=== PATIENT | female | born 1975 | race Caucasian/White ===

== ENCOUNTER 2018-03-16 18:00 | Outpatient (REF) | payer MEDICAID, SELFPAY ==
--- NOTE | 2018-03-16 09:00 | PAPFT_PTH ---
PATIENT: Elaine Willard LOC: [facility] U#:[id number] AGE/SX: 42/F ROOM: RE03/16/[address]: Trang Smith : 1975 BED: DIS: 03/16/2018 SPEC #: [id number] RECD: 03/17/18 12:26 STATUS: CARLOS SPARROW #: [id number] GISSELLE: 03/16/18 09:[address]: Trang Smith DEPT: [facility] Cytology RECD BY: Veena Sexton ENTERED: 03/17/18 12:27 SP TYPE: PAPFT OTHR DR: Radha Krause Tissues: 1 - CX/ENDOCX FOR PAP SMEARS Procedures: PAP THIN PREP/[facility] Screening HPV DNA PROBE Comments: [id number]
[2018-03-16 23:14] LABS: Anion Gap 9.5 mmol/L (3-11); BUN 9 mg/dL (7-18); CO2 23.5 mmol/L (21.0-32.0); CREATININE 0.91 mg/dL (0.55-1.02); Calcium 8.6 mg/dL (8.5-10.1); Chloride 104 mmol/L (98-107); Glucose 103 mg/dL (70-100); Potassium 4.2 mmol/L (3.5-5.1); Sodium 137 mmol/L (136-145)
== END 2018-03-16 18:20 ==
LOC: NCHCN 18:00
PROVIDERS: PCP Nurse Practitioner Family; Visit Provider Registered Nurse
DX: I10 Essential (primary) hypertension (principal); Z12.4 Encounter for screening for malignant neoplasm of cervix; Z11.51 Encounter for screening for human papillomavirus (HPV)
CPT/HCPCS: 80048; 88142; 87624

== ENCOUNTER 2019-04-18 09:47 | Outpatient (REF) | payer MEDICARE, MEDICAID, SELFPAY ==
[2019-04-18 21:54] LABS: Anion Gap 12.6 mmol/L (3-11); BUN 10 mg/dL (7-18); CO2 23.4 mmol/L (21.0-32.0); CREATININE 0.89 mg/dL (0.55-1.02); Calcium 8.6 mg/dL (8.5-10.1); Calculated LDL 55 mg/dL; Chloride 102 mmol/L (98-107); Cholesterol 177 mg/dL (50-200); Glucose 93 mg/dL (70-100); HDL Cholesterol 88 mg/dL (40-60); Potassium 4.1 mmol/L (3.5-5.1); Sodium 138 mmol/L (136-145); Triglyceride 170 mg/dL (30-150)
== END 2019-04-18 10:07 ==
LOC: NCHCO 09:47
PROVIDERS: PCP Nurse Practitioner Family; Visit Provider Registered Nurse
DX: I10 Essential (primary) hypertension (principal); Z00.00 Encounter for general adult medical examination without abnormal findings
CPT/HCPCS: 80048; 80061

== ENCOUNTER 2019-07-05 11:24 | Outpatient (REF) | payer MEDICARE, MEDICAID, SELFPAY ==
--- NOTE | 2019-07-05 10:30 | PAPFT_PTH ---
PATIENT: Elaine Willard LOC: [facility] U#:[id number] AGE/SX: 43/F ROOM: RE07/05/[address]: Trang Smith : 1975 BED: DIS: 07/05/2019 SPEC #: [id number] RECD: 07/08/19 12:53 STATUS: CARLOS REQ #: [id number] GISSELLE: 07/05/19 10:[address]: Trang Smith DEPT: [facility] Cytology RECD BY: Veena Sexton ENTERED: 07/08/19 12:54 SP TYPE: PAPFT OTHR DR: Radha Krause Tissues: 1 - CX/ENDOCX FOR PAP SMEARS Procedures: PAP THIN PREP/[facility] Screening HPV DNA PROBE Comments: [id number] (CHLAMYDIA/GC)
[2019-07-11 14:48] LABS: Chlamydia Result Negative (Negative); GC Result Negative (Negative)
== END 2019-07-05 11:44 ==
LOC: NCHCN 11:24
PROVIDERS: PCP Nurse Practitioner Family; Visit Provider Registered Nurse
DX: Z11.3 Encounter for screening for infections with a predominantly sexual mode of transmission (principal); Z12.4 Encounter for screening for malignant neoplasm of cervix
CPT/HCPCS: 87491; 87591; 88142; 87624

== ENCOUNTER 2019-07-21 10:42 | Outpatient (REF) | payer MEDICARE, MEDICAID, SELFPAY ==
[2019-07-21 21:51] LABS: Anion Gap 14.8 mmol/L (3-11); BUN 13 mg/dL (7-18); CO2 24.2 mmol/L (21.0-32.0); CREATININE 0.68 mg/dL (0.55-1.02); Calcium 8.7 mg/dL (8.5-10.1); Chloride 101 mmol/L (98-107); Glucose 80 mg/dL (74-106); Potassium 4.1 mmol/L (3.5-5.1); Sodium 140 mmol/L (136-145)
== END 2019-07-21 11:02 ==
LOC: NCHCN 10:42
PROVIDERS: PCP Nurse Practitioner Family; Visit Provider Registered Nurse
DX: I10 Essential (primary) hypertension (principal)
CPT/HCPCS: 80048

== ENCOUNTER 2020-04-18 10:40 | Outpatient (REF) | payer MEDICARE, MEDICAID, SELFPAY ==
[2020-04-18 22:25] LABS: ALT 43 U/L (14-59); AST 28 U/L (15-37); Albumin 3.4 g/dL (3.4-5.0); Alkaline Phosphatase 45 U/L (46-116); Anion Gap 9.3 mmol/L (3-11); BUN 8 mg/dL (7-18); Bilirubin, Total 0.2 mg/dL (0.2-1.0); CO2 24.7 mmol/L (21.0-32.0); CREATININE 0.84 mg/dL (0.55-1.02); Calcium 8.7 mg/dL (8.5-10.1); Chloride 104 mmol/L (98-107); Glucose 85 mg/dL (74-106); Potassium 4.6 mmol/L (3.5-5.1); Sodium 138 mmol/L (136-145); TSH 2.42 uIU/mL (0.36-3.74); Total Protein 6.7 g/dL (6.4-8.2)
== END 2020-04-18 11:00 ==
LOC: NCHCN 10:40
PROVIDERS: PCP Nurse Practitioner Family; Visit Provider Registered Nurse
DX: R60.0 Localized edema (principal)
CPT/HCPCS: 80053; 84443

== ENCOUNTER 2021-01-30 14:28 | Outpatient (REF) | payer MEDICARE, MEDICAID, SELFPAY ==
[2021-01-30 16:13] LABS: Anion Gap 12.4 mmol/L (3-11); BUN 6 mg/dL (7-18); CO2 23.6 mmol/L (21.0-32.0); CREATININE 0.8 mg/dL (0.55-1.02); Calcium 8.8 mg/dL (8.5-10.1); Chloride 103 mmol/L (98-107); Glucose 104 mg/dL (74-106); Sodium 139 mmol/L (136-145)
== END 2021-01-30 14:29 | disposition home or self-care (01) ==
LOC: NCHCN 14:28
PROVIDERS: PCP Nurse Practitioner Family; Visit Provider Registered Nurse
DX: I10 Essential (primary) hypertension (principal)
CPT/HCPCS: 80048

== ENCOUNTER 2022-02-19 12:21 | Outpatient (REF) | payer MEDICARE, MEDICAID, SELFPAY ==
[2022-02-19 21:53] LABS: ALT 28 U/L (14-59); AST 26 U/L (15-37); Albumin 3.6 g/dL (3.4-5.0); Alkaline Phosphatase 53 U/L (46-116); Anion Gap 7.2 mmol/L (3-11); BUN 11 mg/dL (7-18); Bilirubin, Total 0.1 mg/dL (0.2-1.0); CO2 27.8 mmol/L (21.0-32.0); CREATININE 0.8 mg/dL (0.55-1.02); Calcium 9.2 mg/dL (8.5-10.1); Chloride 102 mmol/L (98-107); Glucose 89 mg/dL (74-106); Potassium 4.4 mmol/L (3.5-5.1); Sodium 137 mmol/L (136-145); Total Protein 7.4 g/dL (6.4-8.2)
== END 2022-02-19 12:22 | disposition home or self-care (01) ==
LOC: NCHCN 12:21
PROVIDERS: PCP Nurse Practitioner Family; Visit Provider Registered Nurse
DX: I10 Essential (primary) hypertension (principal); E66.9 Obesity, unspecified
CPT/HCPCS: 80053

== ENCOUNTER 2022-11-06 10:32 | Outpatient (REF) | payer MEDICARE, MEDICAID, SELFPAY ==
--- NOTE | 2022-11-06 09:50 | PAPFT_PTH ---
PATIENT: Elaine Willard LOC: [facility] U#:[id number] AGE/SX: 46/F ROOM: RE11/06/[address]: Trang Smith : 1975 BED: DIS: 11/06/2022 SPEC #: [id number] RECD: 11/06/22 17:40 STATUS: CARLOS REPrabhakar #: [id number] GISSELLE: 11/06/22 09:[address]: Trang Smith DEPT: [facility] Cytology RECD BY: Veena Sexton ENTERED: 11/06/22 17:40 SP TYPE: PAPFT OTHR DR: Radha Krause Tissues: 1 - CX/ENDOCX FOR PAP SMEARS Procedures: PAP THIN PREP/[facility] Screening HPV DNA PROBE Comments: [id number] (CHLAMYDIA/GC)
[2022-11-06 15:15] LABS: Hemoglobin A1C 5.4 % (<5.7)
[2022-11-06 15:29] LABS: ALT 32 U/L (14-59); AST 24 U/L (15-37); Albumin 3.8 g/dL (3.4-5.0); Alkaline Phosphatase 51 U/L (46-116); Anion Gap 9.9 mmol/L (3-11); BUN 10 mg/dL (7-18); Bilirubin, Total 0.3 mg/dL (0.2-1.0); CO2 25.1 mmol/L (21.0-32.0); CREATININE 0.9 mg/dL (0.55-1.02); Calcium 9.1 mg/dL (8.5-10.1); Calculated LDL 74 mg/dL (<100); Chloride 100 mmol/L (98-107); Cholesterol 171 mg/dL (<200); Estimated GFR 80.34 (mL/min/1.73m2); Glucose 90 mg/dL (74-106); HDL Cholesterol 67 mg/dL (40-60); Potassium 3.9 mmol/L (3.5-5.1); Sodium 135 mmol/L (136-145); Total Protein 7.4 g/dL (6.4-8.2); Triglyceride 153 mg/dL (<150)
[2022-11-07 09:53] LABS: Hepatitis C Ab w Rflx HCV PCR Negative (Negative)
[2022-11-07 10:10] LABS: HIV-1/2 Ag & Ab Screen Negative (Negative)
[2022-11-07 15:39] LABS: Chlamydia Result Negative (Negative); GC Result Negative (Negative)
== END 2022-11-06 10:33 | disposition home or self-care (01) ==
LOC: NCHCN 10:32
PROVIDERS: PCP Nurse Practitioner Family; Visit Provider Registered Nurse
DX: E66.9 Obesity, unspecified (principal); Z00.00 Encounter for general adult medical examination without abnormal findings; Z12.4 Encounter for screening for malignant neoplasm of cervix; Z11.51 Encounter for screening for human papillomavirus (HPV)
CPT/HCPCS: 80053; 80061; 86803; 87389; 87491; 87591; 88142; 83036; 87624